=== PATIENT | female | born 1995 | race Caucasian/White ===

== ENCOUNTER 2018-05-10 07:20 | Outpatient (CLI) | payer OTHER ==
[2018-05-10] VITALS (19 sets, daily range): BP systolic 104–129; BP diastolic 55–79
[~2018-05-10] VITALS: Ht 162.6 cm; Wt 74.8 kg
[2018-05-10] MEDS ORDERED: PRENATAL TABLE1 EAC3 PO (07:47)
[2018-05-10] MEDS ORDERED: METHADONE H5 MG/5 ML PO (07:47)
[2018-05-10 08:45] LABS: APPEARANCE SL.HAZY ((CLEAR)); BILIRUBIN NEGATIVE; BLOOD NEGATIVE; COLOR YELLOW ((YELLOW)); GLUCOSE (STRIP) NEGATIVE; KETONES NEGATIVE; LEUKOCYTES MODERATE; NITRITE NEGATIVE; PROTEIN (STRIP) NEGATIVE; SPECIFIC GRAVITY 1.009 (1.000-1.030)
[2018-05-10 08:54] LABS: BACTERIA RARE /HPF; EPITHELIAL CELLS 1+ /HPF; MUCUS NONE SEEN /LPF; RED BLOOD CELLS 0-5 /HPF (0-5); UCUL ADDED? YES
[2018-05-10 09:03] LABS: BASOPHIL (%) 0.3 % (0-1); EOSINOPHIL (%) 0 % (0-5); HEMATOCRIT 37.5 % (36.0-46.0); HEMOGLOBIN 12.6 G/DL (11.9-15.5); IMMATURE GRANULOCYTE (%) 0.4 % (0.0-0.7); LYMPHOCYTE (%) 18.8 % (15-42); LYMPHOCYTE COUNT 2.6 K/uL (1.0-2.8); MCH 31.2 PG (29.0-34.0); MCHC 33.6 G/DL (30.0-36.0); MCV 92.8 FL (83-99); MONOCYTE (%) 5.7 % (3-12); MONOCYTE COUNT 0.8 K/uL (0-0.8); NEUTROPHIL (%) 74.8 % (45-76); NEUTROPHIL COUNT 10.4 K/uL (1.8-6.4); PLATELET COUNT 273 K/uL (156-360); RBC DIS.WIDTH-CV 12.8 % (11.8-14.6); RBC DIS.WIDTH-SD 43.7 % (39-53); RED BLOOD COUNT 4.04 M/uL (3.80-5.20); WHITE BLOOD COUNT 13.9 K/uL (4.1-10.2)
[2018-05-10 09:05] LABS: AMPHETAMINE NEGATIVE (500 ng/mL); BARBITURATES NEGATIVE (200 ng/mL); BENZODIAZEPINES NEGATIVE (150 ng/mL); BUPRENORPHINE NEGATIVE (10 ng/mL); COCAINE NEGATIVE (150 ng/mL); METHADONE PRESUMPTIVE POSITIVE (200 ng/mL); METHAMPHETAMINE NEGATIVE (500 ng/mL); OPIATES (MORPHINE) NEGATIVE (100 ng/mL); OXYCODONE NEGATIVE (100 ng/mL); PHENCYCLIDINE NEGATIVE (25 ng/mL); PROPOXYPHENE NEGATIVE (300 ng/mL); THC CANNABINOIDS NEGATIVE (50 ng/mL); TRICYCLIC ANTIDEPRESSANTS NEGATIVE (300 ng/mL)
[2018-05-10 09:09] LABS: SOURCE SWAB
[2018-05-10 10:14] LABS: GROUP B STREP NEGATIVE (NEGATIVE)
[2018-05-10 10:37] LABS: TREPONEMA ANTIBODY NEGATIVE (NEGATIVE)
[2018-05-10 10:54] LABS: HIV-1/2 AB/AG COMBO Nonreactive
[2018-05-10 18:59] LABS: CANDIDA DNA PROBE NEGATIVE; GARDNERELLA DNA PROBE POSITIVE; TRICHOMONAS DNA PROBE NEGATIVE
[2018-05-11] VITALS (24 sets, daily range): BP systolic 92–123; BP diastolic 55–81
[2018-05-12] VITALS (17 sets, daily range): BP systolic 94–116; BP diastolic 50–70
[2018-05-13 03:19] VITALS: BP 101/66
[2018-05-13 07:36] VITALS: BP 107/62
[2018-05-13] MEDS ORDERED: METRONIDAZOLE500 MG PO (09:03)
[2018-05-13] MEDS ORDERED: NIFEDIPINE20 MG PO (09:03)
== END 2018-05-13 09:47 | disposition home or self-care (01) ==
LOC: LDRP-OP 07:20 → 2WEST 07:21 → LDRP-OP 08-10 10:59
PROVIDERS: Advanced Practice Midwife; Obstetrics & Gynecology
DX: O60.03 Preterm labor without delivery, third trimester (principal); O99.323 Drug use complicating pregnancy, third trimester; F11.20 Opioid dependence, uncomplicated; O23.593 Infection of other part of genital tract in pregnancy, third trimester; B96.89 Other specified bacterial agents as the cause of diseases classified elsewhere; Z87.440 Personal history of urinary (tract) infections; O99.89 Other specified diseases and conditions complicating pregnancy, childbirth and the puerperium; M51.26 Other intervertebral disc displacement, lumbar region; Z3A.32 32 weeks gestation of pregnancy; Z87.891 Personal history of nicotine dependence
CPT/HCPCS: 59025; 76805; 80306 90; 81003; 82731; 82948; 85025; 86780; 87081; 87086; 87389; 87480; 87491; 87510; 87591; 87653; 87660; 93005; G0378; J0702; J2540; J3475; J7120; Q0169

== ENCOUNTER 2018-05-16 22:22 | Inpatient (IN) | payer OTHER ==
[~2018-05-16] VITALS: Ht 162.6 cm; Wt 75.7 kg
[~2018-05-16 22:22] MED LIST: METHADONE H5 MG/5 ML PO; METRONIDAZOLE500 MG PO; NIFEDIPINE20 MG PO; PRENATAL TABLE1 EAC3 PO
[2018-05-16 22:33] VITALS: BP 129/78
[2018-05-16 23:24] LABS: BASOPHIL (%) 0.2 % (0-1); EOSINOPHIL (%) 0.1 % (0-5); HEMOGLOBIN 12.7 G/DL (11.9-15.5); IMMATURE GRANULOCYTE (%) 1.1 % (0.0-0.7); LYMPHOCYTE (%) 20.2 % (15-42); LYMPHOCYTE COUNT 3.2 K/uL (1.0-2.8); MCH 32.2 PG (29.0-34.0); MCHC 35.3 G/DL (30.0-36.0); MCV 91.1 FL (83-99); MONOCYTE COUNT 1.1 K/uL (0-0.8); NEUTROPHIL (%) 71.4 % (45-76); NEUTROPHIL COUNT 11.2 K/uL (1.8-6.4); PLATELET COUNT 265 K/uL (156-360); RBC DIS.WIDTH-CV 12.6 % (11.8-14.6); RBC DIS.WIDTH-SD 41.4 % (39-53); RED BLOOD COUNT 3.95 M/uL (3.80-5.20); WHITE BLOOD COUNT 15.6 K/uL (4.1-10.2)
[2018-05-16 23:38] VITALS: BP 122/82
[2018-05-17] VITALS (24 sets, daily range): BP systolic 104–151; BP diastolic 58–94
[2018-05-17 00:04] LABS: ALBUMIN 3.1 g/dL (3.2-4.8); CHLORIDE 108 mEq/L (99-109); POTASSIUM 4.2 mEq/L (3.7-5.4); SODIUM 140 mEq/L (136-147)
[2018-05-17 00:07] LABS: GLUCOSE 85 mg/dL (70-99); TOTAL PROTEIN 5.6 g/dL (6.4-8.3)
[2018-05-17 00:09] LABS: TOTAL BILIRUBIN 0.3 mg/dL (0.0-1.0)
[2018-05-17 00:10] LABS: ALKALINE PHOSPHATASE 75 IU/L (3-129); CREATININE 0.6 mg/dL (0.6-1.3); GFR ESTIMATE (CALCULATED) > 59 mL/min/
[2018-05-17 00:11] LABS: UREA NITROGEN (BUN) 7 mg/dL (9-23)
[2018-05-17 00:12] LABS: AST (GOT) 15 IU/L (2-34)
[2018-05-17 00:13] LABS: ALT (GPT) 12 IU/L (3-49)
[2018-05-17 00:20] LABS: AMPHETAMINE NEGATIVE (500 ng/mL); BENZODIAZEPINES NEGATIVE (150 ng/mL); COCAINE NEGATIVE (150 ng/mL); METHAMPHETAMINE NEGATIVE (500 ng/mL); OPIATES (MORPHINE) NEGATIVE (100 ng/mL); PHENCYCLIDINE NEGATIVE (25 ng/mL); THC CANNABINOIDS NEGATIVE (50 ng/mL); TRICYCLIC ANTIDEPRESSANTS NEGATIVE (300 ng/mL)
[2018-05-17 00:21] LABS: BARBITURATES NEGATIVE (200 ng/mL); BUPRENORPHINE NEGATIVE (10 ng/mL); METHADONE PRESUMPTIVE POSITIVE (200 ng/mL); OXYCODONE NEGATIVE (100 ng/mL); PROPOXYPHENE NEGATIVE (300 ng/mL)
[2018-05-17] MEDS ORDERED: IBUPROFEN800 MG PO (15:31)
[2018-05-17] MEDS ORDERED: DOCUSATE SODIU100 MG PO (15:32)
[2018-05-17] MEDS ORDERED: HEMOCYTE324 MG PO (15:32)
[2018-05-17] MEDS ORDERED: CAMILA0.35 MG PO (15:32)
== END 2018-05-17 16:41 | disposition home or self-care (01) | DRG 774 ==
LOC: LDRP-OP 22:22 → 2WEST 22:26 → LDRP-OP 08-10 10:58
PROVIDERS: Advanced Practice Midwife; Obstetrics & Gynecology
PROC: 10907ZC Drainage of Amniotic Fluid, Therapeutic from Products of Conception, Via Natural or Artificial Opening (ICD-10-PCS; principal; 2018-05-17)
PROC: 00HU33Z Insertion of Infusion Device into Spinal Canal, Percutaneous Approach (ICD-10-PCS; principal; 2018-05-17)
PROC: 10E0XZZ Delivery of Products of Conception, External Approach (ICD-10-PCS; principal; 2018-05-17)
PROC: 3E0R3BZ Introduction of Anesthetic Agent into Spinal Canal, Percutaneous Approach (ICD-10-PCS; principal; 2018-05-17)
DX: O60.14X0 Preterm labor third trimester with preterm delivery third trimester, not applicable or unspecified (principal); O75.3 Other infection during labor; O99.323 Drug use complicating pregnancy, third trimester; O44.43 Low lying placenta NOS or without hemorrhage, third trimester; O99.03 Anemia complicating the puerperium; D62 Acute posthemorrhagic anemia; F17.200 Nicotine dependence, unspecified, uncomplicated; O99.334 Smoking (tobacco) complicating childbirth; N76.0 Acute vaginitis; Z37.0 Single live birth; Z3A.32 32 weeks gestation of pregnancy; F15.90 Other stimulant use, unspecified, uncomplicated
CPT/HCPCS: 80053; 85025; 87070; 87075; 87077; 87086; 87186; 87205; 88307; C1755; G0378; J7120